=== PATIENT | male | born 1940 | race Caucasian/White ===

== ENCOUNTER 2021-07-11 01:45 | Inpatient (IN) ==
[2021-07-11] MEDS ORDERED: Ondansetron 4 MG/2 ML VIAL IVP PRN (03:43)
[2021-07-11] MEDS ORDERED: Naloxone 0.4 MG/ML INJ IVP PRN (03:43)
[2021-07-11] MEDS ORDERED: Ipratropium/Albuterol Neb 3 ML IH PRN (04:00)
[2021-07-11] MEDS: 0.9 % Sodium Chloride 1,000 ML IVC SCH ×2 (04:23→20:30)
[2021-07-11] MEDS: *HR* OxyCODONE Immed Rel 5 MG TABLET PO PRN ×2 (04:31→17:59)
[2021-07-11] MEDS ORDERED: Dextrose Gel 15 GM/37.5 ML TUBE PO PRN ×2 (04:50)
[2021-07-11] MEDS ORDERED: *HR* Dextrose 50 % in Water (Syg) 50 ML SYRINGE IVP PRN (04:50)
[2021-07-11] MEDS ORDERED: D5% in Water 1,000 ML IVC PRN (04:50)
[2021-07-11 05:08] LABS: Basophils # 0.1 K/mcL (0.0-0.2); Basophils % 0.7 %; Eosinophils # 0.3 K/mcL (0.0-0.6); Eosinophils % 4.9 %; Hematocrit 32.5 % (37.5-50.1); Hemoglobin 10.1 g/dL (12.9-16.9); Immature Granulocytes % 4.2 % (0-4); Lymphocytes # 0.7 K/mcL (0.6-4.6); Lymphocytes % 10.5 %; Mean Corpuscular HGB Conc 31.1 g/dL (31.6-35.5); Mean Corpuscular Hemoglobin 30.4 pg (28.0-33.3); Mean Corpuscular Volume 97.9 fL (83.0-100.0); Mean Platelet Volume 9.2 fL (9.4-12.4); Monocytes # 0.6 K/mcL (0.0-1.3); Monocytes % 8.5 %; Neutrophils # 4.9 K/mcL (1.6-8.9); Platelet Count 296 K/mcL (140-400); Red Blood Count 3.32 M/mcL (4.19-5.50); Red Cell Distribution Width 16.7 % (11.5-14.5); Segmented Neutrophils % 71.2 %; White Blood Count 6.9 K/mcL (4.3-11.1)
[2021-07-11 05:16] LABS: Calcium 8.8 mg/dL (8.6-10.3); Potassium 5.1 mEq/L (3.5-5.1)
[2021-07-11 05:17] LABS: Phosphorous 3.5 mg/dL (2.7-4.5)
[2021-07-11 05:19] LABS: Uric Acid 7.7 mg/dL (2.3-7.6)
[2021-07-11 05:23] LABS: INR 1.1; Prothrombin Time 12.1 Seconds (9.4-12.1)
[2021-07-11 05:29] LABS: Thyroid Stimulating Hormone 1.025 mcIU/mL (0.340-5.600)
[2021-07-11 06:00] LABS: Estimated Average Glucose 177 mg/dl; Hemoglobin A1C 7.8 %
[2021-07-11 06:08] LABS: Potassium,Urine 22.7 mEq/L; Sodium, Urine 87.7 mEq/L
[2021-07-11] MEDS: Insulin LISPRO 300 UNITS/3 ML VIAL SUBQ SCH ×4 (07:37→20:31)
[2021-07-12 02:51] LABS: Calcium 8.6 mg/dL (8.6-10.3)
[2021-07-12] MEDS: Insulin LISPRO 300 UNITS/3 ML VIAL SUBQ SCH ×4 (09:07→21:09)
[2021-07-12 09:14] LABS: Basophils % 0.5 %; Eosinophils # 0.3 K/mcL (0.0-0.6); Eosinophils % 4.2 %; Hematocrit 32.2 % (37.5-50.1); Hemoglobin 9.7 g/dL (12.9-16.9); Immature Granulocytes % 2.3 % (0-4); Lymphocytes # 1.1 K/mcL (0.6-4.6); Lymphocytes % 17.6 %; Mean Corpuscular HGB Conc 30.1 g/dL (31.6-35.5); Mean Corpuscular Hemoglobin 29.4 pg (28.0-33.3); Mean Corpuscular Volume 97.6 fL (83.0-100.0); Mean Platelet Volume 9.6 fL (9.4-12.4); Monocytes # 0.6 K/mcL (0.0-1.3); Monocytes % 9.7 %; Neutrophils # 4.2 K/mcL (1.6-8.9); Platelet Count 311 K/mcL (140-400); Red Cell Distribution Width 16.4 % (11.5-14.5); Segmented Neutrophils % 65.7 %; White Blood Count 6.4 K/mcL (4.3-11.1)
[2021-07-12 09:24] LABS: Calcium 8.9 mg/dL (8.6-10.3); Potassium 5.1 mEq/L (3.5-5.1)
[2021-07-12 10:11] LABS: Bilirubin,Urine Negative (Negative); Blood,Urine Large (Negative); Clarity,Urine Turbid (Clear); Color,Urine Colorless (Yellow); Glucose,Urine (UA) Normal (Normal); Ketones,Urine Negative (Negative); Leukocyte Esterase,Urine Large (Negative); Mucus,Urine Few per lpf (None-Few); Nitrite,Urine Negative (Negative); Protein,Urine 50 mg/dL (Neg-Trace); RBC,Urine TNTC per hpf (0-3); Specific Gravity,Urine 1.012 (1.010-1.025); Urobilinogen,Urine Normal (Normal); WBC,Urine TNTC per hpf (0-3)
[2021-07-12] MEDS ORDERED: 0.9 % Sodium Chloride 1,000 ML IVC SCH (11:15)
[2021-07-12] MEDS: cefTRIAXone 1,000 MG in 0.9 % Sodium Chloride Mini Bag 100 ML IVPB SCH (14:20)
[2021-07-12] MEDS ORDERED: Insulin DETEMIR 100 UNIT/ML X5UNITS SUBQ SCH (21:00)
[2021-07-12] MEDS: *HR* OxyCODONE Immed Rel 5 MG TABLET PO PRN (21:08)
[2021-07-13 02:42] LABS: Basophils % 0.7 %; Eosinophils # 0.3 K/mcL (0.0-0.6); Eosinophils % 4.9 %; Hematocrit 29.7 % (37.5-50.1); Immature Granulocytes % 3.1 % (0-4); Lymphocytes # 1.3 K/mcL (0.6-4.6); Lymphocytes % 22.3 %; Mean Corpuscular HGB Conc 30.3 g/dL (31.6-35.5); Mean Corpuscular Hemoglobin 29.8 pg (28.0-33.3); Mean Corpuscular Volume 98.3 fL (83.0-100.0); Mean Platelet Volume 9.4 fL (9.4-12.4); Monocytes # 0.7 K/mcL (0.0-1.3); Monocytes % 11.7 %; Neutrophils # 3.3 K/mcL (1.6-8.9); Platelet Count 248 K/mcL (140-400); Red Blood Count 3.02 M/mcL (4.19-5.50); Red Cell Distribution Width 16.3 % (11.5-14.5); Segmented Neutrophils % 57.3 %; White Blood Count 5.7 K/mcL (4.3-11.1)
[2021-07-13 03:01] LABS: Calcium 8.4 mg/dL (8.6-10.3); Potassium 4.9 mEq/L (3.5-5.1)
[2021-07-13] MEDS: Insulin LISPRO 300 UNITS/3 ML VIAL SUBQ SCH ×4 (09:21→21:18)
[2021-07-13] MEDS: cefTRIAXone 1,000 MG in 0.9 % Sodium Chloride Mini Bag 100 ML IVPB SCH (09:29)
[2021-07-13] MEDS: Metoprolol XL (24 HR) Succ 50 MG TAB.ER.24H PO SCH (09:30)
[2021-07-13] MEDS: Ringers Solution, Lactated 1,000 ML IVC SCH (11:57)
[2021-07-13] MEDS: Acetaminophen 325 MG TABLET PO PRN (17:15)
[2021-07-13] MEDS ORDERED: Insulin DETEMIR 100 UNIT/ML X5UNITS SUBQ SCH (21:00)
[2021-07-13] MEDS: Insulin DETEMIR 100 UNIT/ML X5UNITS SUBQ SCH (21:18)
[2021-07-14] MEDS: *HR* OxyCODONE Immed Rel 5 MG TABLET PO PRN ×2 (01:39→17:41)
[2021-07-14 03:18] LABS: Basophils % 0.6 %; Eosinophils # 0.3 K/mcL (0.0-0.6); Eosinophils % 4.8 %; Hematocrit 29.5 % (37.5-50.1); Immature Granulocytes % 2.4 % (0-4); Lymphocytes % 15.4 %; Mean Corpuscular HGB Conc 30.5 g/dL (31.6-35.5); Mean Corpuscular Volume 98.3 fL (83.0-100.0); Mean Platelet Volume 9.5 fL (9.4-12.4); Monocytes # 0.5 K/mcL (0.0-1.3); Monocytes % 7.6 %; Neutrophils # 4.6 K/mcL (1.6-8.9); Platelet Count 242 K/mcL (140-400); Red Cell Distribution Width 16.2 % (11.5-14.5); Segmented Neutrophils % 69.2 %; White Blood Count 6.6 K/mcL (4.3-11.1)
[2021-07-14 03:38] LABS: Calcium 8.6 mg/dL (8.6-10.3); Potassium 5.3 mEq/L (3.5-5.1)
[2021-07-14] MEDS: Ringers Solution, Lactated 1,000 ML IVC SCH (03:46)
[2021-07-14] MEDS: Insulin LISPRO 300 UNITS/3 ML VIAL SUBQ SCH ×4 (09:28→20:03)
[2021-07-14] MEDS: Metoprolol XL (24 HR) Succ 50 MG TAB.ER.24H PO SCH (11:16)
[2021-07-14] MEDS: Acetaminophen 325 MG TABLET PO PRN ×2 (11:16→20:16)
[2021-07-14] MEDS: cefTRIAXone 1,000 MG in 0.9 % Sodium Chloride Mini Bag 100 ML IVPB SCH (12:03)
[2021-07-14] MEDS: Insulin DETEMIR 100 UNIT/ML X5UNITS SUBQ SCH (20:03)
[2021-07-14] MEDS ORDERED: *HR* OxyCODONE Immed Rel 5 MG TABLET PO PRN ×2 (20:37→20:38)
[2021-07-14] MEDS ORDERED: Morphine Sulfate 2 MG/ML SYRINGE IVP ONE (20:38)
[2021-07-14] MEDS ORDERED: Naloxone 0.4 MG/ML INJ IVP PRN (20:38)
[2021-07-15] MEDS ORDERED: hydrOXYzine pamoate 25 MG CAPSULE PO ONE (03:51)
[2021-07-15 04:00] LABS: Calcium 8.8 mg/dL (8.6-10.3); Potassium 5.3 mEq/L (3.5-5.1)
[2021-07-15] MEDS: Metoprolol XL (24 HR) Succ 50 MG TAB.ER.24H PO SCH (08:33)
[2021-07-15] MEDS: Insulin LISPRO 300 UNITS/3 ML VIAL SUBQ SCH ×4 (08:33→20:31)
[2021-07-15] MEDS: cefTRIAXone 1,000 MG in 0.9 % Sodium Chloride Mini Bag 100 ML IVPB SCH (08:34)
[2021-07-15] MEDS: *HR* OxyCODONE Immed Rel 5 MG TABLET PO PRN (16:28)
[2021-07-15] MEDS ORDERED: Calcium Gluconate 1gm/50mL 1 GM/50 ML BAG IVPB ONE (17:32)
[2021-07-15] MEDS ORDERED: Insulin DETEMIR 100 UNIT/ML X5UNITS SUBQ SCH (21:00)
[2021-07-16 02:46] LABS: Calcium 8.7 mg/dL (8.6-10.3); Potassium 5.9 mEq/L (3.5-5.1)
[2021-07-16] MEDS: *HR* OxyCODONE Immed Rel 5 MG TABLET PO PRN ×3 (05:40→18:49)
[2021-07-16] MEDS ORDERED: Albuterol 2.5 MG/3 ML NEBULIZER IH ONE (07:31)
[2021-07-16] MEDS: Insulin LISPRO 300 UNITS/3 ML VIAL SUBQ SCH ×4 (09:32→21:02)
[2021-07-16] MEDS: Metoprolol XL (24 HR) Succ 50 MG TAB.ER.24H PO SCH (09:32)
[2021-07-16] MEDS: cefTRIAXone 1,000 MG in 0.9 % Sodium Chloride Mini Bag 100 ML IVPB SCH (09:32)
[2021-07-16] MEDS: Acetaminophen 325 MG TABLET PO PRN (09:36)
[2021-07-16] MEDS: SODIUM ZIRCONIUM CYCLOSILICATE 5 GM POWD.PACK PO SCH (11:21)
[2021-07-16] MEDS: Doxycycline 100 MG CAPSULE PO SCH ×2 (12:37→21:00)
[2021-07-16] MEDS: Insulin DETEMIR 100 UNIT/ML X5UNITS SUBQ SCH (21:00)
[2021-07-17 06:52] LABS: Calcium 8.9 mg/dL (8.6-10.3); Potassium 5.2 mEq/L (3.5-5.1)
[2021-07-17 06:56] LABS: Uric Acid 6.2 mg/dL (2.3-7.6)
[2021-07-17] MEDS ORDERED: Ringers Solution, Lactated 1,000 ML IVC SCH (07:45)
[2021-07-17] MEDS: Metoprolol XL (24 HR) Succ 50 MG TAB.ER.24H PO SCH (08:10)
[2021-07-17] MEDS: *HR* OxyCODONE Immed Rel 5 MG TABLET PO PRN ×2 (08:10→14:03)
[2021-07-17] MEDS: cefTRIAXone 1,000 MG in 0.9 % Sodium Chloride Mini Bag 100 ML IVPB SCH (08:11)
[2021-07-17] MEDS: Doxycycline 100 MG CAPSULE PO SCH (08:11)
[2021-07-17] MEDS: SODIUM ZIRCONIUM CYCLOSILICATE 5 GM POWD.PACK PO SCH (08:11)
[2021-07-17] MEDS: Insulin LISPRO 300 UNITS/3 ML VIAL SUBQ SCH ×4 (08:15→21:32)
[2021-07-17 13:07] LABS: Magnesium 1.5 mg/dL (1.6-2.6)
[2021-07-17] MEDS: Loratadine 10 MG TABLET PO SCH (13:16)
[2021-07-17] MEDS: Acetaminophen 325 MG TABLET PO PRN (13:16)
[2021-07-17] MEDS: *HR* Heparin 5,000 UNIT/ML VIAL SQ SCH (18:13)
[2021-07-17] MEDS: CeFAZolin 2,000 MG/120 ML BAG IVPB SCH (18:17)
[2021-07-17] MEDS: Insulin DETEMIR 100 UNIT/ML X5UNITS SUBQ SCH (21:31)
[2021-07-18 05:58] LABS: Basophils # 0.1 K/mcL (0.0-0.2); Basophils % 0.7 %; Eosinophils # 0.3 K/mcL (0.0-0.6); Eosinophils % 4.7 %; Hematocrit 28.5 % (37.5-50.1); Hemoglobin 8.9 g/dL (12.9-16.9); Lymphocytes # 1.1 K/mcL (0.6-4.6); Lymphocytes % 14.9 %; Mean Corpuscular HGB Conc 31.2 g/dL (31.6-35.5); Mean Corpuscular Hemoglobin 30.3 pg (28.0-33.3); Mean Corpuscular Volume 96.9 fL (83.0-100.0); Mean Platelet Volume 9.8 fL (9.4-12.4); Monocytes # 0.7 K/mcL (0.0-1.3); Monocytes % 9.9 %; Neutrophils # 4.7 K/mcL (1.6-8.9); Platelet Count 232 K/mcL (140-400); Red Blood Count 2.94 M/mcL (4.19-5.50); Red Cell Distribution Width 15.6 % (11.5-14.5); Segmented Neutrophils % 65.8 %; White Blood Count 7.2 K/mcL (4.3-11.1)
[2021-07-18 06:21] LABS: Calcium 9.4 mg/dL (8.6-10.3); Magnesium 1.7 mg/dL (1.6-2.6); Potassium 4.8 mEq/L (3.5-5.1)
[2021-07-18] MEDS: CeFAZolin 2,000 MG/120 ML BAG IVPB SCH ×2 (06:31→17:01)
[2021-07-18] MEDS: *HR* Heparin 5,000 UNIT/ML VIAL SQ SCH ×2 (06:34→17:01)
[2021-07-18] MEDS: SODIUM ZIRCONIUM CYCLOSILICATE 5 GM POWD.PACK PO SCH (07:30)
[2021-07-18] MEDS: Loratadine 10 MG TABLET PO SCH (07:30)
[2021-07-18] MEDS: *HR* OxyCODONE Immed Rel 5 MG TABLET PO PRN ×2 (07:30→14:30)
[2021-07-18] MEDS: Metoprolol XL (24 HR) Succ 50 MG TAB.ER.24H PO SCH (07:31)
[2021-07-18] MEDS: Insulin LISPRO 300 UNITS/3 ML VIAL SUBQ SCH ×4 (07:31→22:10)
[2021-07-18] MEDS: Insulin DETEMIR 100 UNIT/ML X5UNITS SUBQ SCH (22:10)
[2021-07-19] MEDS: CeFAZolin 2,000 MG/120 ML BAG IVPB SCH ×2 (06:19→18:28)
[2021-07-19] MEDS: *HR* Heparin 5,000 UNIT/ML VIAL SQ SCH ×2 (06:19→18:28)
[2021-07-19 07:02] LABS: Basophils % 0.7 %; Eosinophils # 0.3 K/mcL (0.0-0.6); Eosinophils % 5.1 %; Hematocrit 30.5 % (37.5-50.1); Hemoglobin 9.2 g/dL (12.9-16.9); Immature Granulocytes % 2.5 % (0-4); Lymphocytes # 1.4 K/mcL (0.6-4.6); Mean Corpuscular HGB Conc 30.2 g/dL (31.6-35.5); Mean Corpuscular Hemoglobin 29.1 pg (28.0-33.3); Mean Corpuscular Volume 96.5 fL (83.0-100.0); Mean Platelet Volume 9.4 fL (9.4-12.4); Monocytes # 0.5 K/mcL (0.0-1.3); Monocytes % 8.9 %; Neutrophils # 3.7 K/mcL (1.6-8.9); Platelet Count 239 K/mcL (140-400); Red Blood Count 3.16 M/mcL (4.19-5.50); Red Cell Distribution Width 15.4 % (11.5-14.5); Segmented Neutrophils % 59.8 %; White Blood Count 6.1 K/mcL (4.3-11.1)
[2021-07-19] MEDS: *HR* OxyCODONE Immed Rel 5 MG TABLET PO PRN ×3 (07:16→21:49)
[2021-07-19] MEDS: Metoprolol XL (24 HR) Succ 50 MG TAB.ER.24H PO SCH (07:16)
[2021-07-19] MEDS: SODIUM ZIRCONIUM CYCLOSILICATE 5 GM POWD.PACK PO SCH (07:16)
[2021-07-19] MEDS: Loratadine 10 MG TABLET PO SCH (07:16)
[2021-07-19 07:24] LABS: Calcium 9.5 mg/dL (8.6-10.3); Potassium 4.6 mEq/L (3.5-5.1)
[2021-07-19] MEDS: Insulin LISPRO 300 UNITS/3 ML VIAL SUBQ SCH ×4 (07:36→21:50)
[2021-07-19 08:10] LABS: Bacteria,Urine Few per hpf (None-Few); Bilirubin,Urine Negative (Negative); Blood,Urine Small (Negative); Clarity,Urine Turbid (Clear); Color,Urine Light-Yellow (Yellow); Glucose,Urine (UA) 50 mg/dL (Normal); Ketones,Urine Negative (Negative); Leukocyte Esterase,Urine Large (Negative); Mucus,Urine Few per lpf (None-Few); Nitrite,Urine Negative (Negative); Protein,Urine 50 mg/dL (Neg-Trace); RBC,Urine 15-30 per hpf (0-3); Specific Gravity,Urine 1.014 (1.010-1.025); Urobilinogen,Urine Normal (Normal); WBC,Urine TNTC per hpf (0-3)
[2021-07-19] MEDS: Simethicone 80 MG TAB.CHEW PO PRN ×2 (13:26→21:49)
[2021-07-19] MEDS: Insulin DETEMIR 100 UNIT/ML X5UNITS SUBQ SCH (21:50)
[2021-07-20] MEDS: *HR* Heparin 5,000 UNIT/ML VIAL SQ SCH ×2 (06:28→18:03)
[2021-07-20] MEDS: CeFAZolin 2,000 MG/120 ML BAG IVPB SCH ×2 (06:28→18:03)
[2021-07-20 06:41] LABS: Basophils % 0.6 %; Eosinophils # 0.4 K/mcL (0.0-0.6); Eosinophils % 6.3 %; Hematocrit 29.1 % (37.5-50.1); Immature Granulocytes % 2.3 % (0-4); Lymphocytes # 0.8 K/mcL (0.6-4.6); Lymphocytes % 13.6 %; Mean Corpuscular HGB Conc 30.9 g/dL (31.6-35.5); Mean Corpuscular Hemoglobin 30.7 pg (28.0-33.3); Mean Corpuscular Volume 99.3 fL (83.0-100.0); Mean Platelet Volume 9.9 fL (9.4-12.4); Monocytes # 0.7 K/mcL (0.0-1.3); Monocytes % 11.2 %; Neutrophils # 4.1 K/mcL (1.6-8.9); Platelet Count 215 K/mcL (140-400); Red Blood Count 2.93 M/mcL (4.19-5.50); Red Cell Distribution Width 15.5 % (11.5-14.5); White Blood Count 6.2 K/mcL (4.3-11.1)
[2021-07-20 08:03] LABS: Albumin 2.9 g/dL (3.5-5.7); Albumin/Globulin Ratio 0.9 (1.1-2.2); Bilirubin,Indirect 0.2 mg/dL (0.0-1.0); Bilirubin,Total 0.2 mg/dL (0.3-1.0); Calcium 9.2 mg/dL (8.6-10.3); Folate 5.4 ng/mL (3.0-16.0); Globulin 3.3 g/dL (2.4-3.5); Magnesium 1.5 mg/dL (1.6-2.6); Phosphorous 3.8 mg/dL (2.7-4.5); Potassium 4.2 mEq/L (3.5-5.1); Total Protein 6.2 g/dL (6.4-8.9)
[2021-07-20] MEDS: Insulin LISPRO 300 UNITS/3 ML VIAL SUBQ SCH ×4 (12:40→20:38)
[2021-07-20] MEDS: Loratadine 10 MG TABLET PO SCH (12:45)
[2021-07-20] MEDS: *HR* HYDROcodone/Acet 5/325 mg TABLET PO PRN ×2 (12:45→20:45)
[2021-07-20] MEDS: Metoprolol XL (24 HR) Succ 50 MG TAB.ER.24H PO SCH (12:45)
[2021-07-20] MEDS: SODIUM ZIRCONIUM CYCLOSILICATE 5 GM POWD.PACK PO SCH (12:45)
[2021-07-20] MEDS ORDERED: Cyanocobalamin (B-12) 1,000 MCG/ML VIAL SQ ONE (16:38)
[2021-07-20] MEDS ORDERED: Iron Sucrose Complex 250 MG in 0.9 % Sodium Chloride 250 ML IVPB ONE (16:38)
[2021-07-20] MEDS: Insulin DETEMIR 100 UNIT/ML X5UNITS SUBQ SCH (20:45)
[2021-07-20] MEDS: Simethicone 80 MG TAB.CHEW PO PRN (20:45)
[2021-07-21 05:47] LABS: Basophils % 0.4 %; Eosinophils # 0.5 K/mcL (0.0-0.6); Eosinophils % 6.7 %; Hematocrit 27.7 % (37.5-50.1); Hemoglobin 8.7 g/dL (12.9-16.9); Lymphocytes # 1.2 K/mcL (0.6-4.6); Lymphocytes % 16.3 %; Mean Corpuscular HGB Conc 31.4 g/dL (31.6-35.5); Mean Corpuscular Hemoglobin 30.4 pg (28.0-33.3); Mean Corpuscular Volume 96.9 fL (83.0-100.0); Mean Platelet Volume 9.7 fL (9.4-12.4); Monocytes # 0.7 K/mcL (0.0-1.3); Monocytes % 9.6 %; Neutrophils # 4.7 K/mcL (1.6-8.9); Platelet Count 231 K/mcL (140-400); Red Blood Count 2.86 M/mcL (4.19-5.50); Red Cell Distribution Width 15.3 % (11.5-14.5); White Blood Count 7.2 K/mcL (4.3-11.1)
[2021-07-21 05:56] LABS: Calcium 9.4 mg/dL (8.6-10.3); Magnesium 1.6 mg/dL (1.6-2.6); Potassium 4.1 mEq/L (3.5-5.1)
[2021-07-21] MEDS: CeFAZolin 2,000 MG/120 ML BAG IVPB SCH ×2 (06:13→18:04)
[2021-07-21] MEDS: Metoprolol XL (24 HR) Succ 50 MG TAB.ER.24H PO SCH (06:13)
[2021-07-21] MEDS: *HR* Heparin 5,000 UNIT/ML VIAL SQ SCH ×2 (06:14→18:04)
[2021-07-21] MEDS ORDERED: Lidocaine 1% 20 ML MDV ONE (07:20)
[2021-07-21] MEDS ORDERED: *HR* Propofol 200 MG/20 ML VIAL IVP ONE (07:30)
[2021-07-21] MEDS ORDERED: Ondansetron 4 MG/2 ML VIAL ONE (07:30)
[2021-07-21] MEDS ORDERED: Lidocaine -MPF 2% 5 ML VIAL ONE (07:30)
[2021-07-21] MEDS: Ringers Solution, Lactated 1,000 ML IVC SCH (07:35)
[2021-07-21] MEDS: Insulin LISPRO 300 UNITS/3 ML VIAL SUBQ SCH ×4 (09:25→21:05)
[2021-07-21] MEDS: Loratadine 10 MG TABLET PO SCH (09:26)
[2021-07-21] MEDS: SODIUM ZIRCONIUM CYCLOSILICATE 5 GM POWD.PACK PO SCH (09:26)
[2021-07-21] MEDS ORDERED: Morphine Sulfate 2 MG/ML SYRINGE IVP ONE (10:33)
[2021-07-21] MEDS: Sennosides/Docusate Sodium TABLET PO SCH ×2 (13:07→21:06)
[2021-07-21] MEDS: polyethylene glycoL 3350 17 GM POWD.PACK PO SCH (13:07)
[2021-07-21] MEDS: Insulin DETEMIR 100 UNIT/ML X5UNITS SUBQ SCH (21:06)
[2021-07-22] MEDS: *HR* OxyCODONE/APAP 5/325 TABLET PO PRN ×3 (03:25→15:33)
[2021-07-22] MEDS: CeFAZolin 2,000 MG/120 ML BAG IVPB SCH ×2 (05:55→17:15)
[2021-07-22] MEDS: *HR* Heparin 5,000 UNIT/ML VIAL SQ SCH ×2 (05:56→17:14)
[2021-07-22] MEDS: polyethylene glycoL 3350 17 GM POWD.PACK PO SCH (08:17)
[2021-07-22] MEDS: Ringers Solution, Lactated 1,000 ML IVC SCH (08:18)
[2021-07-22] MEDS: Sennosides/Docusate Sodium TABLET PO SCH ×2 (08:20→20:36)
[2021-07-22] MEDS: Loratadine 10 MG TABLET PO SCH (08:20)
[2021-07-22] MEDS: Metoprolol XL (24 HR) Succ 50 MG TAB.ER.24H PO SCH (08:21)
[2021-07-22] MEDS: SODIUM ZIRCONIUM CYCLOSILICATE 5 GM POWD.PACK PO SCH (08:21)
[2021-07-22] MEDS: Insulin LISPRO 300 UNITS/3 ML VIAL SUBQ SCH ×3 (08:22→17:15)
[2021-07-22] MEDS: Insulin DETEMIR 100 UNIT/ML X5UNITS SUBQ SCH (20:36)
[2021-07-23] MEDS: *HR* Heparin 5,000 UNIT/ML VIAL SQ SCH ×2 (05:52→17:15)
[2021-07-23] MEDS: CeFAZolin 2,000 MG/120 ML BAG IVPB SCH ×2 (05:52→17:16)
[2021-07-23] MEDS: Insulin LISPRO 300 UNITS/3 ML VIAL SUBQ SCH ×3 (08:28→17:24)
[2021-07-23] MEDS: Metoprolol XL (24 HR) Succ 50 MG TAB.ER.24H PO SCH (08:29)
[2021-07-23] MEDS: Sennosides/Docusate Sodium TABLET PO SCH ×2 (08:29→20:15)
[2021-07-23] MEDS: SODIUM ZIRCONIUM CYCLOSILICATE 5 GM POWD.PACK PO SCH (08:30)
[2021-07-23] MEDS: Loratadine 10 MG TABLET PO SCH (08:30)
[2021-07-23] MEDS: polyethylene glycoL 3350 17 GM POWD.PACK PO SCH (08:30)
[2021-07-23] MEDS: *HR* OxyCODONE/APAP 5/325 TABLET PO PRN ×2 (08:40→20:15)
[2021-07-23] MEDS: Insulin DETEMIR 100 UNIT/ML X5UNITS SUBQ SCH ×2 (08:41→20:48)
[2021-07-24 03:43] LABS: Basophils % 0.5 %; Eosinophils # 0.6 K/mcL (0.0-0.6); Eosinophils % 9.9 %; Hematocrit 27.9 % (37.5-50.1); Hemoglobin 8.5 g/dL (12.9-16.9); Immature Granulocytes % 3.6 % (0-4); Lymphocytes % 16.2 %; Mean Corpuscular HGB Conc 30.5 g/dL (31.6-35.5); Mean Corpuscular Volume 98.6 fL (83.0-100.0); Mean Platelet Volume 9.7 fL (9.4-12.4); Monocytes # 0.5 K/mcL (0.0-1.3); Monocytes % 8.6 %; Neutrophils # 3.8 K/mcL (1.6-8.9); Nucleated Red Blood Cells 0.3 /100 WBC (0); Platelet Count 262 K/mcL (140-400); Red Blood Count 2.83 M/mcL (4.19-5.50); Red Cell Distribution Width 15.5 % (11.5-14.5); Segmented Neutrophils % 61.2 %; White Blood Count 6.2 K/mcL (4.3-11.1)
[2021-07-24 04:02] LABS: Magnesium 1.5 mg/dL (1.6-2.6); Potassium 4.1 mEq/L (3.5-5.1)
[2021-07-24] MEDS: *HR* OxyCODONE/APAP 5/325 TABLET PO PRN ×3 (04:29→21:03)
[2021-07-24] MEDS: *HR* Heparin 5,000 UNIT/ML VIAL SQ SCH ×2 (05:25→16:34)
[2021-07-24] MEDS: CeFAZolin 2,000 MG/120 ML BAG IVPB SCH ×2 (05:27→16:33)
[2021-07-24] MEDS: Insulin LISPRO 300 UNITS/3 ML VIAL SUBQ SCH ×3 (08:28→16:33)
[2021-07-24] MEDS: Metoprolol XL (24 HR) Succ 50 MG TAB.ER.24H PO SCH (08:34)
[2021-07-24] MEDS: Loratadine 10 MG TABLET PO SCH (08:34)
[2021-07-24] MEDS: Insulin DETEMIR 100 UNIT/ML X5UNITS SUBQ SCH ×2 (08:34→21:04)
[2021-07-24] MEDS: polyethylene glycoL 3350 17 GM POWD.PACK PO SCH (08:35)
[2021-07-24] MEDS: SODIUM ZIRCONIUM CYCLOSILICATE 5 GM POWD.PACK PO SCH (08:35)
[2021-07-24] MEDS ORDERED: Lactulose Oral Soln 20 GM/30 ML UDC PO ONE (14:55)
[2021-07-25] MEDS: CeFAZolin 2,000 MG/120 ML BAG IVPB SCH ×2 (05:12→17:26)
[2021-07-25] MEDS: *HR* Heparin 5,000 UNIT/ML VIAL SQ SCH ×2 (05:12→18:22)
[2021-07-25] MEDS: *HR* OxyCODONE/APAP 5/325 TABLET PO PRN ×2 (06:12→23:54)
[2021-07-25 06:44] LABS: Basophils # 0.1 K/mcL (0.0-0.2); Basophils % 0.7 %; Eosinophils # 0.6 K/mcL (0.0-0.6); Eosinophils % 8.1 %; Hematocrit 30.7 % (37.5-50.1); Hemoglobin 9.4 g/dL (12.9-16.9); Immature Granulocytes % 2.7 % (0-4); Lymphocytes # 1.1 K/mcL (0.6-4.6); Lymphocytes % 14.2 %; Mean Corpuscular HGB Conc 30.6 g/dL (31.6-35.5); Mean Corpuscular Hemoglobin 30.2 pg (28.0-33.3); Mean Corpuscular Volume 98.7 fL (83.0-100.0); Mean Platelet Volume 9.9 fL (9.4-12.4); Monocytes # 0.7 K/mcL (0.0-1.3); Monocytes % 8.9 %; Neutrophils # 4.9 K/mcL (1.6-8.9); Nucleated Red Blood Cells 0.3 /100 WBC (0); Platelet Count 271 K/mcL (140-400); Red Blood Count 3.11 M/mcL (4.19-5.50); Red Cell Distribution Width 15.7 % (11.5-14.5); Segmented Neutrophils % 65.4 %; White Blood Count 7.5 K/mcL (4.3-11.1)
[2021-07-25 07:15] LABS: BUN/Creatinine Ratio 26 (6-26); Blood Urea Nitrogen 36 mg/dL (8-23); Carbon Dioxide 26 mEq/L (23-29); Chloride 102 mEq/L (98-107); Glucose 139 mg/dL (70-105); Magnesium 1.7 mg/dL (1.6-2.6); Osmolality,Calculated 297 (280-300); Potassium 4.3 mEq/L (3.5-5.1); Sodium 138 mEq/L (136-145); eGFR For African Americans > 60 (> 60); eGFR For Non-African Americans 50 (> 60)
[2021-07-25] MEDS: Insulin LISPRO 300 UNITS/3 ML VIAL SUBQ SCH ×3 (08:27→17:26)
[2021-07-25] MEDS: Metoprolol XL (24 HR) Succ 50 MG TAB.ER.24H PO SCH (08:28)
[2021-07-25] MEDS: SODIUM ZIRCONIUM CYCLOSILICATE 5 GM POWD.PACK PO SCH (08:28)
[2021-07-25] MEDS: polyethylene glycoL 3350 17 GM POWD.PACK PO SCH (08:28)
[2021-07-25] MEDS: Loratadine 10 MG TABLET PO SCH (08:28)
[2021-07-25] MEDS: Insulin DETEMIR 100 UNIT/ML X5UNITS SUBQ SCH ×2 (09:36→21:34)
[2021-07-26 02:53] LABS: Basophils % 0.5 %; Eosinophils # 0.7 K/mcL (0.0-0.6); Eosinophils % 10.7 %; Hematocrit 29.2 % (37.5-50.1); Hemoglobin 8.7 g/dL (12.9-16.9); Immature Granulocytes % 2.1 % (0-4); Lymphocytes # 0.9 K/mcL (0.6-4.6); Lymphocytes % 13.1 %; Mean Corpuscular HGB Conc 29.8 g/dL (31.6-35.5); Mean Corpuscular Hemoglobin 29.6 pg (28.0-33.3); Mean Corpuscular Volume 99.3 fL (83.0-100.0); Mean Platelet Volume 9.7 fL (9.4-12.4); Monocytes # 0.7 K/mcL (0.0-1.3); Monocytes % 9.9 %; Neutrophils # 4.2 K/mcL (1.6-8.9); Nucleated Red Blood Cells 0.3 /100 WBC (0); Platelet Count 258 K/mcL (140-400); Red Blood Count 2.94 M/mcL (4.19-5.50); Red Cell Distribution Width 15.7 % (11.5-14.5); Segmented Neutrophils % 63.7 %; White Blood Count 6.6 K/mcL (4.3-11.1)
[2021-07-26 02:54] LABS: Calcium 8.9 mg/dL (8.6-10.3); Magnesium 1.8 mg/dL (1.6-2.6); Potassium 3.8 mEq/L (3.5-5.1)
[2021-07-26] MEDS: CeFAZolin 2,000 MG/120 ML BAG IVPB SCH ×2 (05:24→15:16)
[2021-07-26] MEDS: *HR* Heparin 5,000 UNIT/ML VIAL SQ SCH (05:24)
[2021-07-26 08:09] VITALS: PULSE 80
[2021-07-26] MEDS: Loratadine 10 MG TABLET PO SCH (08:56)
[2021-07-26] MEDS: Metoprolol XL (24 HR) Succ 50 MG TAB.ER.24H PO SCH (08:56)
[2021-07-26] MEDS: SODIUM ZIRCONIUM CYCLOSILICATE 5 GM POWD.PACK PO SCH (08:56)
[2021-07-26] MEDS: polyethylene glycoL 3350 17 GM POWD.PACK PO SCH (08:56)
[2021-07-26] MEDS: Insulin LISPRO 300 UNITS/3 ML VIAL SUBQ SCH ×3 (08:57→16:58)
[2021-07-26] MEDS: Insulin DETEMIR 100 UNIT/ML X5UNITS SUBQ SCH (09:01)
[2021-07-26 10:45] VITALS: BP 123/50; TEMP 98.1; O2SAT 94
[2021-07-26 13:12] LABS: Adenovirus Not Detected (Not Detect); Bordetella Pertussis Not Detected (Not Detect); Chlamydophila pneumoniae Not Detected (Not Detect); Coronavirus 229E Not Detected (Not Detect); Coronavirus HKU1 Not Detected (Not Detect); Coronavirus NL63 Not Detected (Not Detect); Coronavirus OC43 Not Detected (Not Detect); Human Metapneumovirus Not Detected (Not Detect); Human Rhinovirus/Enterovirus Not Detected (Not Detect); Influenza A Subtype 2009 H1 Not Detected (Not Detect); Influenza B Not Detected (Not Detect); Mycoplasma pneumoniae Not Detected (Not Detect); Parainfluenza Virus 1 Not Detected (Not Detect); Parainfluenza Virus 2 Not Detected (Not Detect); Parainfluenza Virus 3 Not Detected (Not Detect); Parainfluenza Virus 4 Not Detected (Not Detect); Respiratory Syncytial Virus Not Detected (Not Detect); SARS-CoV-2 Not Detected (Not Detect)
[2021-07-26] MEDS ORDERED: Doxycycline 100 MG CAPSULE PO SCH (21:00)
[2021-07-26] MEDS ORDERED: Insulin DETEMIR 100 UNIT/ML X5UNITS SUBQ SCH (21:00)
== END 2021-07-26 19:04 | DRG 617 ==
LOC: 3ANU → SUATTDRO 01:45
PROVIDERS: ADMIT Internal Medicine; ATTEND Hospitalist

== ENCOUNTER 2021-08-11 12:57 | Inpatient (IN) ==
[2021-08-11] MEDS ORDERED: *HR* Heparin 5,000 UNIT/ML VIAL IVP PRN (18:12)
[2021-08-11] MEDS ORDERED: Ondansetron 4 MG/2 ML VIAL IVP PRN (18:12)
[2021-08-11] MEDS ORDERED: Naloxone 0.4 MG/ML INJ IVP PRN (18:12)
[2021-08-11] MEDS ORDERED: D5% in Water 1,000 ML IVC PRN (18:30)
[2021-08-11] MEDS ORDERED: Dextrose Gel 15 GM/37.5 ML TUBE PO PRN ×2 (18:30)
[2021-08-11] MEDS ORDERED: *HR* Dextrose 50 % in Water (Syg) 50 ML SYRINGE IVP PRN (18:30)
[2021-08-11] MEDS: Heparin 25,000 UNIT/250 ML 25,000 UNIT/250 ML IV.SOLN IVC SCH (18:47)
[2021-08-11 19:48] LABS: Hematocrit 30.7 % (37.5-50.1); Hemoglobin 9.2 g/dL (12.9-16.9); Mean Corpuscular Hemoglobin 29.3 pg (28.0-33.3); Mean Corpuscular Volume 97.8 fL (83.0-100.0); Mean Platelet Volume 9.7 fL (9.4-12.4); Platelet Count 181 K/mcL (140-400); Red Blood Count 3.14 M/mcL (4.19-5.50); Red Cell Distribution Width 15.7 % (11.5-14.5); White Blood Count 6.2 K/mcL (4.3-11.1)
[2021-08-11 19:50] LABS: Heparin anti-factor XA UFH 0.86 IU/mL (0.30-0.70); INR 1.4; Prothrombin Time 15.6 Seconds (9.4-12.1)
[2021-08-11] MEDS ORDERED: GuaiFENesin Liq 200 MG/10 ML UDC PO PRN (23:41)
[2021-08-11] MEDS ORDERED: Saline Nasal Spray 44 ML BOTTLE NS PRN (23:41)
[2021-08-12] MEDS: Ipratropium 1 PUFF INHALER IH SCH ×7 (00:32→23:40)
[2021-08-12 01:35] LABS: Eosinophils % 0.2 %; Hematocrit 32.2 % (37.5-50.1); Hemoglobin 9.8 g/dL (12.9-16.9); Immature Granulocytes % 0.5 % (0-4); Immature Platelets 2.6 % (1.1-6.1); Lymphocytes # 0.9 K/mcL (0.6-4.6); Lymphocytes % 16.1 %; Mean Corpuscular HGB Conc 30.4 g/dL (31.6-35.5); Mean Corpuscular Hemoglobin 29.9 pg (28.0-33.3); Mean Corpuscular Volume 98.2 fL (83.0-100.0); Mean Platelet Volume 10.2 fL (9.4-12.4); Monocytes # 0.2 K/mcL (0.0-1.3); Monocytes % 4.2 %; Neutrophils # 4.3 K/mcL (1.6-8.9); Platelet Count 186 K/mcL (140-400); Red Blood Count 3.28 M/mcL (4.19-5.50); Red Cell Distribution Width 15.7 % (11.5-14.5); White Blood Count 5.5 K/mcL (4.3-11.1)
[2021-08-12 01:42] LABS: Heparin anti-factor XA UFH 0.11 IU/mL (0.30-0.70)
[2021-08-12 02:01] LABS: Albumin/Globulin Ratio 0.9 (1.1-2.2); Bilirubin,Direct 0.1 mg/dL (0.0-0.2); Bilirubin,Indirect 0.1 mg/dL (0.0-1.0); Bilirubin,Total 0.2 mg/dL (0.3-1.0); Calcium 7.9 mg/dL (8.6-10.3); Globulin 3.5 g/dL (2.4-3.5); Magnesium 1.8 mg/dL (1.6-2.6); Phosphorous 5.2 mg/dL (2.7-4.5); Potassium 3.9 mEq/L (3.5-5.1); Total Protein 6.5 g/dL (6.4-8.9); Troponin I 0.13 ng/mL (< 0.04)
[2021-08-12] MEDS: *HR* Heparin 5,000 UNIT/ML VIAL IVP PRN ×2 (02:38→22:01)
[2021-08-12] MEDS ORDERED: Perflutren Lipid Microsphere 1.3 ML in 0.9 % Sodium Chloride 8.7 ML IVP PRN (02:54)
[2021-08-12 04:23] LABS: Hepatitis B Surface Antigen Nonreactive (Nonreactive)
[2021-08-12] MEDS: Azithromycin 500 MG in 0.9 % Sodium Chloride 250 ML IVPB SCH (04:25)
[2021-08-12 04:51] LABS: Hepatitis C Virus Antibody Nonreactive (Nonreactive)
[2021-08-12 04:52] LABS: Hepatitis A Antibody IgM Nonreactive (Nonreactive); Hepatitis B Core IgM Nonreactive (Nonreactive)
[2021-08-12 06:17] LABS: Bilirubin,Urine Negative (Negative); Blood,Urine Moderate (Negative); Clarity,Urine Clear (Clear); Color,Urine Yellow (Yellow); Glucose,Urine (UA) 250 mg/dL (Normal); Ketones,Urine Trace mg/dL (Negative); Leukocyte Esterase,Urine Small (Negative); Nitrite,Urine Positive (Negative); Protein,Urine 100 mg/dL (Neg-Trace); Urobilinogen,Urine Normal (Normal)
[2021-08-12 06:20] LABS: Bacteria,Urine Few per hpf (None-Few); Mucus,Urine Few per lpf (None-Few); RBC,Urine 30-50 per hpf (0-3); Squamous Epithelial Cell,Urine Few per hpf (None-Few); WBC,Urine TNTC per hpf (0-3)
[2021-08-12] MEDS ORDERED: *HR* HYDROcodone/Acet 5/325 mg TABLET PO ONE (06:52)
[2021-08-12 07:00] LABS: Sodium, Urine 56.8 mEq/L
[2021-08-12] MEDS: Multivit/Ca/Min/Fe/FA 1 TAB TABLET PO SCH (09:19)
[2021-08-12] MEDS: Aspirin Enteric Coated 81 MG Tablet PO SCH (09:19)
[2021-08-12] MEDS: cefTRIAXone 1,000 MG in Water for inj. (sterile) 10 ML IVP SCH (09:20)
[2021-08-12] MEDS: Insulin LISPRO 300 UNITS/3 ML VIAL SUBQ SCH ×6 (09:27→21:27)
[2021-08-12 11:18] LABS: Red Cell Distribution Width 15.9 % (11.5-14.5)
[2021-08-12 11:19] LABS: Hematocrit 31.1 % (37.5-50.1); Lymphocytes # 0.1 K/mcL (0.6-4.6); Mean Corpuscular HGB Conc 28.9 g/dL (31.6-35.5); Mean Corpuscular Hemoglobin 29.7 pg (28.0-33.3); Mean Corpuscular Volume 102.6 fL (83.0-100.0); Monocytes # 0.1 K/mcL (0.0-1.3); Monocytes % 1.3 %; Neutrophils # 3.8 K/mcL (1.6-8.9); Platelet Count 169 K/mcL (140-400); Red Blood Count 3.03 M/mcL (4.19-5.50); Segmented Neutrophils % 94.7 %
[2021-08-12 11:44] LABS: Calcium 7.5 mg/dL (8.6-10.3); Magnesium 1.7 mg/dL (1.6-2.6); Phosphorous 4.6 mg/dL (2.7-4.5); Potassium 4.6 mEq/L (3.5-5.1)
[2021-08-12 12:07] LABS: Platelet Estimate Normal (Normal)
[2021-08-12] MEDS: Heparin 25,000 UNIT/250 ML 25,000 UNIT/250 ML IV.SOLN IVC SCH (12:42)
[2021-08-12] MEDS ORDERED: Insulin LISPRO 300 UNITS/3 ML VIAL SUBQ ONE (13:12)
[2021-08-12 13:33] LABS: Uric Acid 9.1 mg/dL (2.3-7.6)
[2021-08-12] MEDS: Melatonin 3 MG TABLET PO PRN (21:26)
[2021-08-12] MEDS: Artificial Tears SOLN 15 ML BOTTLE BOTH EYES SCH (21:27)
[2021-08-13] MEDS: Ipratropium 1 PUFF INHALER IH SCH ×6 (03:32→23:41)
[2021-08-13] MEDS: Azithromycin 500 MG in 0.9 % Sodium Chloride 250 ML IVPB SCH (04:10)
[2021-08-13 04:42] LABS: Basophils % 0.2 %; Hematocrit 33.6 % (37.5-50.1); Immature Granulocytes % 0.8 % (0-4); Lymphocytes # 0.4 K/mcL (0.6-4.6); Mean Corpuscular HGB Conc 29.8 g/dL (31.6-35.5); Mean Corpuscular Hemoglobin 29.2 pg (28.0-33.3); Mean Platelet Volume 10.2 fL (9.4-12.4); Monocytes # 0.3 K/mcL (0.0-1.3); Monocytes % 5.3 %; Neutrophils # 4.2 K/mcL (1.6-8.9); Platelet Count 190 K/mcL (140-400); Red Blood Count 3.43 M/mcL (4.19-5.50); Red Cell Distribution Width 15.4 % (11.5-14.5); Segmented Neutrophils % 84.7 %; White Blood Count 4.9 K/mcL (4.3-11.1)
[2021-08-13 05:00] LABS: Calcium 7.9 mg/dL (8.6-10.3); Potassium 4.2 mEq/L (3.5-5.1)
[2021-08-13 05:31] LABS: Estimated Average Glucose 169 mg/dl; Hemoglobin A1C 7.5 %
[2021-08-13] MEDS: *HR* Heparin 5,000 UNIT/ML VIAL IVP PRN ×2 (06:11→20:52)
[2021-08-13] MEDS: cefTRIAXone 1,000 MG in Water for inj. (sterile) 10 ML IVP SCH (08:31)
[2021-08-13] MEDS: Multivit/Ca/Min/Fe/FA 1 TAB TABLET PO SCH (08:33)
[2021-08-13] MEDS: Aspirin Enteric Coated 81 MG Tablet PO SCH (08:33)
[2021-08-13] MEDS: Insulin LISPRO 300 UNITS/3 ML VIAL SUBQ SCH ×7 (08:34→20:51)
[2021-08-13] MEDS: Heparin 25,000 UNIT/250 ML 25,000 UNIT/250 ML IV.SOLN IVC SCH ×2 (08:37→20:49)
[2021-08-13] MEDS ORDERED: *HR* LORazepam 2 MG/ML VIAL IVP ONE (08:47)
[2021-08-13] MEDS: Artificial Tears SOLN 15 ML BOTTLE BOTH EYES SCH (20:52)
[2021-08-14] MEDS ORDERED: hydrOXYzine pamoate 25 MG CAPSULE PO ONE (00:24)
[2021-08-14 03:13] LABS: Basophils % 0.2 %; Hematocrit 37.3 % (37.5-50.1); Hemoglobin 10.8 g/dL (12.9-16.9); Immature Granulocytes % 0.7 % (0-4); Lymphocytes # 0.4 K/mcL (0.6-4.6); Lymphocytes % 5.8 %; Mean Corpuscular Hemoglobin 29.3 pg (28.0-33.3); Mean Corpuscular Volume 101.1 fL (83.0-100.0); Mean Platelet Volume 10.5 fL (9.4-12.4); Monocytes # 0.3 K/mcL (0.0-1.3); Monocytes % 4.6 %; Neutrophils # 5.4 K/mcL (1.6-8.9); Nucleated Red Blood Cells 0.8 /100 WBC (0); Platelet Count 176 K/mcL (140-400); Red Blood Count 3.69 M/mcL (4.19-5.50); Red Cell Distribution Width 15.3 % (11.5-14.5); Segmented Neutrophils % 88.7 %; White Blood Count 6.1 K/mcL (4.3-11.1)
[2021-08-14 03:25] LABS: Calcium 8.2 mg/dL (8.6-10.3); Potassium 4.6 mEq/L (3.5-5.1)
[2021-08-14] MEDS ORDERED: *HR* HYDROcodone/Acet 5/325 mg TABLET PO ONE (03:35)
[2021-08-14] MEDS: Azithromycin 500 MG in 0.9 % Sodium Chloride 250 ML IVPB SCH (03:52)
[2021-08-14] MEDS: Ipratropium 1 PUFF INHALER IH SCH ×5 (03:54→19:57)
[2021-08-14] MEDS: Insulin LISPRO 300 UNITS/3 ML VIAL SUBQ SCH ×7 (08:51→21:34)
[2021-08-14] MEDS: cefTRIAXone 1,000 MG in Water for inj. (sterile) 10 ML IVP SCH (08:52)
[2021-08-14] MEDS: Aspirin Enteric Coated 81 MG Tablet PO SCH (08:52)
[2021-08-14] MEDS: Multivit/Ca/Min/Fe/FA 1 TAB TABLET PO SCH (08:52)
[2021-08-14] MEDS ORDERED: cefTRIAXone 1,000 MG in Water for inj. (sterile) 10 ML IVP ONE (11:37)
[2021-08-14] MEDS: *HR* Heparin 5,000 UNIT/ML VIAL IVP PRN ×2 (12:23→19:42)
[2021-08-14] MEDS ORDERED: Dexamethasone Sodium Phos/PF 10 MG/ML VIAL IVP ONE (12:57)
[2021-08-14] MEDS: Artificial Tears SOLN 15 ML BOTTLE BOTH EYES SCH (21:36)
[2021-08-15] MEDS: Ipratropium 1 PUFF INHALER IH SCH ×7 (00:11→23:36)
[2021-08-15] MEDS: Melatonin 3 MG TABLET PO PRN (03:09)
[2021-08-15] MEDS: Azithromycin 500 MG in 0.9 % Sodium Chloride 250 ML IVPB SCH (03:10)
[2021-08-15 04:20] LABS: Calcium 8.5 mg/dL (8.6-10.3); Potassium 4.7 mEq/L (3.5-5.1); Troponin I 0.16 ng/mL (< 0.04)
[2021-08-15 04:38] LABS: Basophils % 0.7 %; Hematocrit 34.2 % (37.5-50.1); Hemoglobin 10.7 g/dL (12.9-16.9); Immature Granulocytes % 4.3 % (0-4); Lymphocytes # 0.6 K/mcL (0.6-4.6); Lymphocytes % 10.6 %; Mean Corpuscular HGB Conc 31.3 g/dL (31.6-35.5); Mean Corpuscular Hemoglobin 29.4 pg (28.0-33.3); Mean Platelet Volume 9.8 fL (9.4-12.4); Monocytes # 0.4 K/mcL (0.0-1.3); Monocytes % 6.1 %; Neutrophils # 4.5 K/mcL (1.6-8.9); Platelet Count 216 K/mcL (140-400); Red Blood Count 3.64 M/mcL (4.19-5.50); Red Cell Distribution Width 14.9 % (11.5-14.5); Segmented Neutrophils % 78.3 %; White Blood Count 5.8 K/mcL (4.3-11.1)
[2021-08-15] MEDS: Heparin 25,000 UNIT/250 ML 25,000 UNIT/250 ML IV.SOLN IVC SCH ×3 (04:45→23:04)
[2021-08-15] MEDS: Insulin LISPRO 300 UNITS/3 ML VIAL SUBQ SCH ×5 (08:51→20:25)
[2021-08-15] MEDS: Multivit/Ca/Min/Fe/FA 1 TAB TABLET PO SCH (08:57)
[2021-08-15] MEDS: Aspirin Enteric Coated 81 MG Tablet PO SCH (08:57)
[2021-08-15] MEDS: cefTRIAXone 2,000 MG in Water for inj. (sterile) 10 ML IVP SCH (08:57)
[2021-08-15] MEDS ORDERED: *HR* LORazepam 2 MG/ML VIAL IVP PRN (12:01)
[2021-08-15] MEDS ORDERED: Haloperidol Lactate 5 MG/ML VIAL IVP ONE ×2 (17:27→23:25)
[2021-08-15] MEDS: Insulin DETEMIR 100 UNIT/ML X5UNITS SUBQ SCH (20:13)
[2021-08-15] MEDS: Artificial Tears SOLN 15 ML BOTTLE BOTH EYES SCH (20:13)
[2021-08-16] MEDS: Azithromycin 500 MG in 0.9 % Sodium Chloride 250 ML IVPB SCH (02:41)
[2021-08-16] MEDS: Ipratropium 1 PUFF INHALER IH SCH ×5 (03:33→21:31)
[2021-08-16 06:39] LABS: Hematocrit 31.6 % (37.5-50.1); Hemoglobin 9.7 g/dL (12.9-16.9); Mean Corpuscular HGB Conc 30.7 g/dL (31.6-35.5); Mean Corpuscular Hemoglobin 29.2 pg (28.0-33.3); Mean Corpuscular Volume 95.2 fL (83.0-100.0); Mean Platelet Volume 10.4 fL (9.4-12.4); Nucleated Red Blood Cells 0.3 /100 WBC (0); Platelet Count 290 K/mcL (140-400); Red Blood Count 3.32 M/mcL (4.19-5.50); Red Cell Distribution Width 15.4 % (11.5-14.5)
[2021-08-16 06:53] LABS: White Blood Count 9.7 K/mcL (4.3-11.1)
[2021-08-16 06:55] LABS: Calcium 8.5 mg/dL (8.6-10.3); Potassium 4.3 mEq/L (3.5-5.1)
[2021-08-16 07:13] LABS: Anisocytosis 1+ (Not Present); Lymphocytes # 0.4 K/mcL (0.6-4.6); Neutrophils # 8.3 K/mcL (1.6-8.9); Platelet Estimate Normal (Normal)
[2021-08-16] MEDS: Dexmedetomidine HCl 400 MCG/100 ML MLS IVC SCH ×2 (07:44→21:04)
[2021-08-16] MEDS: cefTRIAXone 2,000 MG in Water for inj. (sterile) 10 ML IVP SCH (07:51)
[2021-08-16] MEDS: Multivit/Ca/Min/Fe/FA 1 TAB TABLET PO SCH (08:20)
[2021-08-16] MEDS: Aspirin Enteric Coated 81 MG Tablet PO SCH (08:20)
[2021-08-16] MEDS: Metoprolol XL (24 HR) Succ 50 MG TAB.ER.24H PO SCH (08:20)
[2021-08-16] MEDS: Insulin LISPRO 300 UNITS/3 ML VIAL SUBQ SCH ×5 (08:31→21:07)
[2021-08-16] MEDS: Heparin 25,000 UNIT/250 ML 25,000 UNIT/250 ML IV.SOLN IVC SCH (17:37)
[2021-08-16] MEDS: Insulin DETEMIR 100 UNIT/ML X5UNITS SUBQ SCH (21:07)
[2021-08-16] MEDS: Artificial Tears SOLN 15 ML BOTTLE BOTH EYES SCH (21:21)
[2021-08-16] MEDS ORDERED: 0.9 % Sodium Chloride 250 ML IVC ONE (22:02)
[2021-08-16] MEDS ORDERED: 0.9 % Sodium Chloride 250 ML ONE (22:07)
[2021-08-16] MEDS ORDERED: OLANZapine 10 MG VIAL IM ONE (23:55)
[2021-08-17] MEDS: Ipratropium 1 PUFF INHALER IH SCH ×7 (00:06→23:40)
[2021-08-17 02:53] LABS: Hematocrit 27.1 % (37.5-50.1); Hemoglobin 8.5 g/dL (12.9-16.9); Mean Corpuscular HGB Conc 31.4 g/dL (31.6-35.5); Mean Corpuscular Hemoglobin 29.5 pg (28.0-33.3); Mean Corpuscular Volume 94.1 fL (83.0-100.0); Mean Platelet Volume 10.5 fL (9.4-12.4); Platelet Count 288 K/mcL (140-400); Red Blood Count 2.88 M/mcL (4.19-5.50); Red Cell Distribution Width 15.6 % (11.5-14.5); White Blood Count 7.2 K/mcL (4.3-11.1)
[2021-08-17] MEDS: Azithromycin 500 MG in 0.9 % Sodium Chloride 250 ML IVPB SCH (03:08)
[2021-08-17 03:50] LABS: Calcium 8.2 mg/dL (8.6-10.3); Potassium 4.4 mEq/L (3.5-5.1)
[2021-08-17] MEDS: Insulin LISPRO 300 UNITS/3 ML VIAL SUBQ SCH ×7 (08:05→21:31)
[2021-08-17] MEDS ORDERED: Ziprasidone 20 MG, Closed System Device IM Kit 1 EACH in Water for inj. (sterile) 1 ML IM ONE (08:36)
[2021-08-17] MEDS: cefTRIAXone 2,000 MG in Water for inj. (sterile) 10 ML IVP SCH (09:19)
[2021-08-17] MEDS: Aspirin Enteric Coated 81 MG Tablet PO SCH (09:21)
[2021-08-17] MEDS: Multivit/Ca/Min/Fe/FA 1 TAB TABLET PO SCH (09:21)
[2021-08-17] MEDS: Metoprolol XL (24 HR) Succ 50 MG TAB.ER.24H PO SCH (09:21)
[2021-08-17 11:04] LABS: Monocytes # 0.4 K/mcL (0.0-1.3); Nucleated Red Blood Cells 0.6 /100 WBC (0)
[2021-08-17 11:08] LABS: Albumin/Globulin Ratio 0.9 (1.1-2.2); Bilirubin,Direct 0.1 mg/dL (0.0-0.2); Bilirubin,Indirect 0.3 mg/dL (0.0-1.0); Bilirubin,Total 0.4 mg/dL (0.3-1.0); Globulin 3.3 g/dL (2.4-3.5); Total Protein 6.3 g/dL (6.4-8.9)
[2021-08-17 11:33] LABS: Lymphocytes # 0.4 K/mcL (0.6-4.6); Neutrophils # 5.9 K/mcL (1.6-8.9); Platelet Estimate Normal (Normal)
[2021-08-17] MEDS ORDERED: Ziprasidone 10 MG, Closed System Device IM Kit 1 EACH in Water for inj. (sterile) 0.5 ML IM PRN (15:51)
[2021-08-17] MEDS: Heparin 25,000 UNIT/250 ML 25,000 UNIT/250 ML IV.SOLN IVC SCH (19:55)
[2021-08-17] MEDS ORDERED: Ziprasidone 10 MG, Closed System Device IM Kit 1 EACH in Water for inj. (sterile) 0.5 ML IM ONE (20:23)
[2021-08-17] MEDS: Artificial Tears SOLN 15 ML BOTTLE BOTH EYES SCH (21:27)
[2021-08-17] MEDS: Insulin DETEMIR 100 UNIT/ML X5UNITS SUBQ SCH (21:32)
[2021-08-18] MEDS: Dexmedetomidine HCl 400 MCG/100 ML MLS IVC SCH ×2 (01:33→13:58)
[2021-08-18] MEDS: Azithromycin 500 MG in 0.9 % Sodium Chloride 250 ML IVPB SCH (03:46)
[2021-08-18] MEDS: Ipratropium 1 PUFF INHALER IH SCH ×6 (03:49→23:23)
[2021-08-18 05:44] LABS: Hematocrit 29.5 % (37.5-50.1); Hemoglobin 8.8 g/dL (12.9-16.9); Mean Corpuscular HGB Conc 29.8 g/dL (31.6-35.5); Mean Corpuscular Hemoglobin 28.7 pg (28.0-33.3); Mean Corpuscular Volume 96.1 fL (83.0-100.0); Mean Platelet Volume 10.3 fL (9.4-12.4); Nucleated Red Blood Cells 0.5 /100 WBC (0); Platelet Count 330 K/mcL (140-400); Red Blood Count 3.07 M/mcL (4.19-5.50); Red Cell Distribution Width 15.9 % (11.5-14.5); White Blood Count 7.6 K/mcL (4.3-11.1)
[2021-08-18 05:57] LABS: Calcium 8.4 mg/dL (8.6-10.3); Potassium 4.5 mEq/L (3.5-5.1)
[2021-08-18 07:17] LABS: Lymphocytes # 0.2 K/mcL (0.6-4.6); Neutrophils # 7.1 K/mcL (1.6-8.9); Platelet Estimate Normal (Normal)
[2021-08-18] MEDS: Insulin LISPRO 300 UNITS/3 ML VIAL SUBQ SCH ×7 (08:26→20:49)
[2021-08-18] MEDS: Aspirin Enteric Coated 81 MG Tablet PO SCH (08:29)
[2021-08-18] MEDS: Metoprolol XL (24 HR) Succ 50 MG TAB.ER.24H PO SCH (08:30)
[2021-08-18] MEDS: Multivit/Ca/Min/Fe/FA 1 TAB TABLET PO SCH (08:30)
[2021-08-18] MEDS: cefTRIAXone 2,000 MG in Water for inj. (sterile) 10 ML IVP SCH (09:11)
[2021-08-18] MEDS ORDERED: Ziprasidone 10 MG, Closed System Device IM Kit 1 EACH in Water for inj. (sterile) 0.5 ML IM ONE (09:43)
[2021-08-18 12:46] LABS: CK-BB (CK isoenzymes) 0 % (0-0); CK-MB (CK isoenzymes) 0 % (0-4); CK-MM (CK-isoenzymes) 100 % (96-100)
[2021-08-18 13:30] LABS: CK Total (Ck Isoenzymes) 104 U/L (20-200)
[2021-08-18] MEDS ORDERED: Morphine Sulfate Oral CONC 10 MG/0.5 ML ORAL.SYG SL PRN (14:25)
[2021-08-18] MEDS: Insulin DETEMIR 100 UNIT/ML X5UNITS SUBQ SCH (20:49)
[2021-08-18] MEDS: Artificial Tears SOLN 15 ML BOTTLE BOTH EYES SCH (20:50)
[2021-08-18 23:36] VITALS: PULSE 70
[2021-08-19] MEDS: Azithromycin 500 MG in 0.9 % Sodium Chloride 250 ML IVPB SCH (03:18)
[2021-08-19] MEDS: Ipratropium 1 PUFF INHALER IH SCH ×4 (03:21→15:06)
[2021-08-19 06:36] LABS: Hematocrit 32.1 % (37.5-50.1); Hemoglobin 9.9 g/dL (12.9-16.9); Mean Corpuscular HGB Conc 30.8 g/dL (31.6-35.5); Mean Corpuscular Volume 97.3 fL (83.0-100.0); Mean Platelet Volume 10.5 fL (9.4-12.4); Nucleated Red Blood Cells 0.7 /100 WBC (0); Platelet Count 303 K/mcL (140-400); Red Cell Distribution Width 16.4 % (11.5-14.5); White Blood Count 10.2 K/mcL (4.3-11.1)
[2021-08-19 06:57] LABS: Calcium 8.6 mg/dL (8.6-10.3); Potassium 4.1 mEq/L (3.5-5.1)
[2021-08-19 07:21] VITALS: BP 127/83; TEMP 97.6
[2021-08-19] MEDS: cefTRIAXone 2,000 MG in Water for inj. (sterile) 10 ML IVP SCH (07:33)
[2021-08-19 07:34] LABS: Lymphocytes # 0.4 K/mcL (0.6-4.6); Monocytes # 0.4 K/mcL (0.0-1.3); Neutrophils # 9.2 K/mcL (1.6-8.9); Platelet Estimate Normal (Normal); Polychromasia 1+ (Not Present)
[2021-08-19 07:35] LABS: Anisocytosis 1+ (Not Present); Poikilocytosis 1+ (Not Present)
[2021-08-19] MEDS: Aspirin Enteric Coated 81 MG Tablet PO SCH (07:41)
[2021-08-19] MEDS: Insulin LISPRO 300 UNITS/3 ML VIAL SUBQ SCH ×2 (07:41)
[2021-08-19] MEDS: Multivit/Ca/Min/Fe/FA 1 TAB TABLET PO SCH (07:42)
[2021-08-19] MEDS: Metoprolol XL (24 HR) Succ 50 MG TAB.ER.24H PO SCH (07:42)
[2021-08-19] MEDS: Dexmedetomidine HCl 400 MCG/100 ML MLS IVC SCH (09:47)
[2021-08-19] MEDS ORDERED: Morphine Sulfate 2 MG/ML SYRINGE IVP PRN ×3 (10:32→12:14)
[2021-08-19 11:28] VITALS: O2SAT 90
[2021-08-19] MEDS ORDERED: *HR* LORazepam 2 MG/ML VIAL IVP PRN (12:12)
[2021-08-19] MEDS ORDERED: Haloperidol Lactate 5 MG/ML VIAL IVP PRN (12:13)
[2021-08-19] MEDS ORDERED: Atropine 1% Opth Drops 100 DROP/5 ML BOTTLE SL PRN (12:26)
[2021-08-19] MEDS: Heparin 25,000 UNIT/250 ML 25,000 UNIT/250 ML IV.SOLN IVC SCH (13:53)
== END 2021-08-19 16:20 | disposition expired | DRG 871 ==
LOC: 3NENU → SUATTDRO 18:37 → 2NNU 08-16 17:14 → 3NENU 08-18 12:23
PROVIDERS: ADMIT Hospitalist; ATTEND Internal Medicine